=== PATIENT | female | born 1940 | race Caucasian/White ===

== ENCOUNTER 2017-09-09 14:36 | Inpatient (IN) | payer MEDICARE, OTHER ==
[2017-09-09 15:11] LABS: ADD MAN DIFF? NO
[2017-09-09 15:14] LABS: BASO # 0.1 x10^3/uL (0.0-0.2); BASO % 1 % (0-3); EOS % 0 % (0-3); HEMOGLOBIN 11.8 g/dL (12.0-15.5); LYMPH # 0.8 x10^3/uL (1.0-4.8); LYMPH % 8 % (24-48); MEAN CORPUSCULAR HEMOGLOBIN 19 pg (25-35); MEAN CORPUSCULAR HGB CONC 31 g/dL (31-37); MEAN CORPUSCULAR VOLUME 62 fL (79-100); MONO % 9 % (0-9); NEUT # 8.8 x10^3uL (1.8-7.7); NEUT % 83 % (31-73); PLATELET COUNT 215 x10^3/uL (140-400); RED BLOOD COUNT 6.14 x10^6/uL (3.50-5.40); RED CELL DISTRIBUTION WIDTH 15.6 % (11.5-14.5); WHITE BLOOD COUNT 10.6 x10^3/uL (4.0-11.0)
[2017-09-09 15:22] LABS: ANION GAP 4 (6-14); BLOOD UREA NITROGEN 14 mg/dL (7-20); CALCIUM 8.7 mg/dL (8.5-10.1); CARBON DIOXIDE 36 mmol/L (21-32); CHLORIDE 96 mmol/L (98-107); CREATININE 0.7 mg/dL (0.6-1.0); GFR 81.1; GLUCOSE 118 mg/dL (70-99); POTASSIUM 3.3 mmol/L (3.5-5.1); SODIUM 136 mmol/L (136-145)
[2017-09-09 15:28] LABS: ALBUMIN 3.2 g/dL (3.4-5.0); ALK PHOS 70 U/L (46-116); ALT (SGPT) 31 U/L (14-59); AST (SGOT) 26 U/L (15-37); DIRECT BILIRUBIN 0.1 mg/dL (0.0-0.2); LIPASE 78 U/L (73-393); TOTAL BILIRUBIN 0.6 mg/dL (0.2-1.0); TOTAL PROTEIN 7.3 g/dL (6.4-8.2)
[2017-09-09 15:31] LABS: TROPONINI < 0.017 ng/mL (0.000-0.055)
[2017-09-09 15:34] LABS: HYPOCHROMIA MARKED; MICROCYTOSIS MARKED; PLT ESTIMATE ADEQUATE (ADEQUATE); POLYCHROMASIA SLIGHT
[2017-09-09 15:36] LABS: NT-PRO BNP 1095 pg/mL (0-449)
[2017-09-09] MEDS: IPRATRPIUM/ALBUTEROL 0.5/2.5MG 3 ML NEBU. NEB ×2 (15:38→20:34)
[2017-09-09 16:06] LABS: LACTIC ACID 0.9 mmol/L (0.4-2.0)
[2017-09-09] MEDS: IV NORMAL SALINE 500ML BAG 500 ML IV (16:24)
[2017-09-09] MEDS: VANCOMYCIN 2 GM in IV DEXTROSE 5% 500 ML IV (16:29)
[2017-09-09] MEDS: methylPREDNISolone SOD SUCC PF 125 MG/2 ML VIAL. IV (16:29)
[2017-09-09] MEDS ORDERED: ONDANSETRON PF 4 MG/2 ML VIAL. IV (16:30)
[2017-09-09] MEDS ORDERED: ONDANSETRON ODT 4 MG TAB.RAPDIS. PO (16:30)
[2017-09-09] MEDS ORDERED: MORPHINE SULFATE 4 MG/ML DISP.SYRIN. IV (16:30)
[2017-09-09] MEDS ORDERED: HYDROcodone/APAP 5/325MG 1 TAB TABLET PO (16:30)
[2017-09-09] MEDS ORDERED: NICOTINE 21MG PATCH. TD (16:30)
[2017-09-09] MEDS ORDERED: ACETAMINOPHEN 500 MG TABLET PO (16:30)
[2017-09-09] MEDS ORDERED: IBUPROFEN 400 MG TABLET. PO (16:30)
[2017-09-09] MEDS ORDERED: guaiFENesin DM 200MG/20MG 10 ML SYRUP PO (16:30)
[2017-09-09] MEDS: VANCOMYCIN PER PHARMACY MC (17:14)
[2017-09-09 19:47] LABS: TROPONINI < 0.017 ng/mL (0.000-0.055)
[2017-09-09] MEDS: guaiFENesin DM 200MG/20MG 10 ML SYRUP PO ×2 (20:00→22:25)
[2017-09-09] MEDS: methylPREDNISolone SOD SUCC PF 40 MG/ML VIAL. IV ×2 (20:00→21:25)
[2017-09-09 22:52] LABS: TROPONINI < 0.017 ng/mL (0.000-0.055)
[2017-09-10] MEDS: IV NORMAL SALINE 1000ML BAG 1,000 ML IV ×3 (05:22→12:19)
[2017-09-10 05:39] LABS: BASO % 0 % (0-3); EOS % 0 % (0-3); HEMATOCRIT 32.6 % (36.0-47.0); HEMOGLOBIN 10.1 g/dL (12.0-15.5); LYMPH # 0.4 x10^3/uL (1.0-4.8); LYMPH % 6 % (24-48); MEAN CORPUSCULAR HEMOGLOBIN 19 pg (25-35); MEAN CORPUSCULAR HGB CONC 31 g/dL (31-37); MEAN CORPUSCULAR VOLUME 62 fL (79-100); MONO # 0.3 x10^3/uL (0.0-1.1); MONO % 4 % (0-9); NEUT # 6.3 x10^3uL (1.8-7.7); NEUT % 91 % (31-73); PLATELET COUNT 176 x10^3/uL (140-400); RED BLOOD COUNT 5.24 x10^6/uL (3.50-5.40); RED CELL DISTRIBUTION WIDTH 15.4 % (11.5-14.5); WHITE BLOOD COUNT 6.9 x10^3/uL (4.0-11.0)
[2017-09-10 05:50] LABS: ANION GAP 4 (6-14); BLOOD UREA NITROGEN 16 mg/dL (7-20); CALCIUM 7.6 mg/dL (8.5-10.1); CARBON DIOXIDE 34 mmol/L (21-32); CHLORIDE 102 mmol/L (98-107); CREATININE 0.7 mg/dL (0.6-1.0); GFR 81.1; GLUCOSE 146 mg/dL (70-99); POTASSIUM 3.7 mmol/L (3.5-5.1); SODIUM 140 mmol/L (136-145)
[2017-09-10 05:53] LABS: ADD MAN DIFF? YES
[2017-09-10] MEDS: methylPREDNISolone SOD SUCC PF 40 MG/ML VIAL. IV ×3 (06:19→22:44)
[2017-09-10] MEDS: IPRATRPIUM/ALBUTEROL 0.5/2.5MG 3 ML NEBU. NEB ×4 (07:31→19:30)
[2017-09-10] MEDS: guaiFENesin DM 200MG/20MG 10 ML SYRUP PO ×4 (08:15→22:44)
[2017-09-10 09:25] LABS: % BANDS 5 % (0-9); % BASOS 1 % (0-3); % LYMPHS 1 % (24-48); % MONOS 3 % (0-10); % SEGS 90 % (35-66); PLT ESTIMATE ADEQUATE (ADEQUATE)
[2017-09-10] MEDS: SODIUM CHLORIDE 0.65% NASAL SPRAY 45ML BOTTLE. NS (15:12)
[2017-09-10] MEDS: VANCOMYCIN 1.25 GM in IV DEXTROSE 5% 250 ML IV (16:40)
[2017-09-10] MEDS: VANCOMYCIN PER PHARMACY MC (18:27)
[2017-09-10] MEDS: LACTOBACILLUS RHAMNOSUS GG 1 CAPSULE. PO (22:44)
[2017-09-10] MEDS: TEMAZEPAM 7.5 MG CAPSULE PO (22:58)
[2017-09-11] MEDS: methylPREDNISolone SOD SUCC PF 40 MG/ML VIAL. IV ×3 (06:26→21:27)
[2017-09-11 06:34] LABS: ADD MAN DIFF? NO
[2017-09-11 06:41] LABS: BASO # 0.1 x10^3/uL (0.0-0.2); BASO % 1 % (0-3); EOS % 0 % (0-3); HEMATOCRIT 34.2 % (36.0-47.0); HEMOGLOBIN 10.5 g/dL (12.0-15.5); LYMPH # 0.5 x10^3/uL (1.0-4.8); LYMPH % 6 % (24-48); MEAN CORPUSCULAR HEMOGLOBIN 19 pg (25-35); MEAN CORPUSCULAR HGB CONC 31 g/dL (31-37); MEAN CORPUSCULAR VOLUME 62 fL (79-100); MONO # 0.5 x10^3/uL (0.0-1.1); MONO % 6 % (0-9); NEUT # 7.3 x10^3uL (1.8-7.7); NEUT % 87 % (31-73); PLATELET COUNT 188 x10^3/uL (140-400); RED CELL DISTRIBUTION WIDTH 15.7 % (11.5-14.5); WHITE BLOOD COUNT 8.5 x10^3/uL (4.0-11.0)
[2017-09-11 07:13] LABS: % SAT IRON 18 % (15-34); ALBUMIN 2.8 g/dL (3.4-5.0); ALBUMIN/GLOBULIN RATIO 0.8 (1.0-1.7); ALK PHOS 58 U/L (46-116); ALT (SGPT) 31 U/L (14-59); ANION GAP 4 (6-14); AST (SGOT) 18 U/L (15-37); BLOOD UREA NITROGEN 15 mg/dL (7-20); BUN/CREATININE RATIO 25 (6-20); CARBON DIOXIDE 36 mmol/L (21-32); CHLORIDE 101 mmol/L (98-107); CREATININE 0.6 mg/dL (0.6-1.0); GFR 96.9; GLUCOSE 128 mg/dL (70-99); IRON,SERUM 42 ug/dL (50-170); POTASSIUM 3.8 mmol/L (3.5-5.1); SODIUM 141 mmol/L (136-145); TOTAL BILIRUBIN 0.4 mg/dL (0.2-1.0); TOTAL PROTEIN 6.5 g/dL (6.4-8.2)
[2017-09-11] MEDS: IPRATRPIUM/ALBUTEROL 0.5/2.5MG 3 ML NEBU. NEB ×4 (07:31→19:51)
[2017-09-11 10:11] LABS: VITAMIN-B12 327 pg/mL (247-911)
[2017-09-11] MEDS: guaiFENesin DM 200MG/20MG 10 ML SYRUP PO ×4 (10:43→21:27)
[2017-09-11] MEDS: hydroCHLOROthiazide 25 MG TABLET PO (10:43)
[2017-09-11] MEDS: LACTOBACILLUS RHAMNOSUS GG 1 CAPSULE. PO ×2 (10:44→21:27)
[2017-09-11] MEDS: LOSARTAN POTASSIUM 50 MG TABLET. PO (10:44)
[2017-09-11] MEDS: LEVOTHYROXINE 88 MCG TABLET PO (10:44)
[2017-09-11] MEDS: METOPROLOL SUCC 24HR ER 100 MG TAB.ER.24H. PO (10:44)
[2017-09-11] MEDS: NYSTATIN TOPICAL POWDER 15GM BOTTLE. TP (21:00)
[2017-09-11] MEDS: SIMVASTATIN 20 MG TABLET PO (21:27)
[2017-09-11] MEDS: TEMAZEPAM 7.5 MG CAPSULE PO (23:19)
[2017-09-12] MEDS: methylPREDNISolone SOD SUCC PF 40 MG/ML VIAL. IV ×3 (06:03→22:31)
[2017-09-12] MEDS: IPRATRPIUM/ALBUTEROL 0.5/2.5MG 3 ML NEBU. NEB ×4 (07:19→20:22)
[2017-09-12] MEDS: hydroCHLOROthiazide 25 MG TABLET PO (08:32)
[2017-09-12] MEDS: METOPROLOL SUCC 24HR ER 100 MG TAB.ER.24H. PO (08:32)
[2017-09-12] MEDS: LACTOBACILLUS RHAMNOSUS GG 1 CAPSULE. PO ×2 (08:33→21:16)
[2017-09-12] MEDS: LOSARTAN POTASSIUM 50 MG TABLET. PO (08:33)
[2017-09-12] MEDS: guaiFENesin DM 200MG/20MG 10 ML SYRUP PO ×4 (08:33→21:16)
[2017-09-12] MEDS: LEVOTHYROXINE 88 MCG TABLET PO (08:33)
[2017-09-12] MEDS: NYSTATIN TOPICAL POWDER 15GM BOTTLE. TP ×2 (09:00→21:16)
[2017-09-12] MEDS: SIMVASTATIN 20 MG TABLET PO (21:16)
[2017-09-12] MEDS: SODIUM CHLORIDE 0.65% NASAL SPRAY 45ML BOTTLE. NS (22:32)
[2017-09-12] MEDS: TEMAZEPAM 7.5 MG CAPSULE PO (23:16)
[2017-09-13] MEDS: LEVOTHYROXINE 88 MCG TABLET PO (06:00)
[2017-09-13] MEDS: methylPREDNISolone SOD SUCC PF 40 MG/ML VIAL. IV ×3 (06:01→21:47)
[2017-09-13] MEDS: IPRATRPIUM/ALBUTEROL 0.5/2.5MG 3 ML NEBU. NEB ×5 (07:56→23:49)
[2017-09-13] MEDS: LACTOBACILLUS RHAMNOSUS GG 1 CAPSULE. PO ×2 (08:22→21:45)
[2017-09-13] MEDS: METOPROLOL SUCC 24HR ER 100 MG TAB.ER.24H. PO (08:22)
[2017-09-13] MEDS: hydroCHLOROthiazide 25 MG TABLET PO (08:22)
[2017-09-13] MEDS: LOSARTAN POTASSIUM 50 MG TABLET. PO (08:22)
[2017-09-13] MEDS: guaiFENesin DM 200MG/20MG 10 ML SYRUP PO ×4 (08:23→21:46)
[2017-09-13] MEDS: SODIUM CHLORIDE 0.65% NASAL SPRAY 45ML BOTTLE. NS (08:23)
[2017-09-13] MEDS ORDERED: IPRATRPIUM/ALBUTEROL 0.5/2.5MG 3 ML NEBU. NEB (10:00)
[2017-09-13] MEDS: NYSTATIN TOPICAL POWDER 15GM BOTTLE. TP ×2 (10:21→21:00)
[2017-09-13] MEDS: VITAMIN B12,B9,B6 COMPLEX 1 TABLET. PO (11:28)
[2017-09-13] MEDS: CYANOCOBALAMIN (VITAMIN B-12) 1,000 MCG/ML VIAL IM (11:28)
[2017-09-13] MEDS: ENOXAPARIN 40 MG/0.4 ML SYRINGE. SQ (11:29)
[2017-09-13] MEDS: BUDESONIDE 0.5 MG/2 ML NEBU. NEB ×2 (13:10→20:05)
[2017-09-13] MEDS: SIMVASTATIN 20 MG TABLET PO (21:45)
[2017-09-13] MEDS: TEMAZEPAM 7.5 MG CAPSULE PO (23:10)
[2017-09-14] MEDS: IPRATRPIUM/ALBUTEROL 0.5/2.5MG 3 ML NEBU. NEB ×3 (03:49→10:48)
[2017-09-14] MEDS: methylPREDNISolone SOD SUCC PF 40 MG/ML VIAL. IV (06:22)
[2017-09-14] MEDS: BUDESONIDE 0.5 MG/2 ML NEBU. NEB (07:19)
[2017-09-14] MEDS: LEVOTHYROXINE 88 MCG TABLET PO (07:44)
[2017-09-14] MEDS: hydroCHLOROthiazide 25 MG TABLET PO (08:39)
[2017-09-14] MEDS: guaiFENesin DM 200MG/20MG 10 ML SYRUP PO ×2 (08:39→12:57)
[2017-09-14] MEDS: LACTOBACILLUS RHAMNOSUS GG 1 CAPSULE. PO (08:39)
[2017-09-14] MEDS: VITAMIN B12,B9,B6 COMPLEX 1 TABLET. PO (08:39)
[2017-09-14] MEDS: LOSARTAN POTASSIUM 50 MG TABLET. PO (08:40)
[2017-09-14] MEDS: NYSTATIN TOPICAL POWDER 15GM BOTTLE. TP (08:42)
[2017-09-14] MEDS: ENOXAPARIN 40 MG/0.4 ML SYRINGE. SQ (11:00)
== END 2017-09-14 13:30 | disposition home health service (06) | DRG 189 ==
LOC: ER 14:36 → 5 SOUTH 16:00
DX: J96.01 Acute respiratory failure with hypoxia (principal); J44.0 Chronic obstructive pulmonary disease with (acute) lower respiratory infection; J44.1 Chronic obstructive pulmonary disease with (acute) exacerbation; M48.50XA Collapsed vertebra, not elsewhere classified, site unspecified, initial encounter for fracture; J20.9 Acute bronchitis, unspecified; E78.5 Hyperlipidemia, unspecified; D50.9 Iron deficiency anemia, unspecified; D56.9 Thalassemia, unspecified; E66.9 Obesity, unspecified; N28.89 Other specified disorders of kidney and ureter; I10 Essential (primary) hypertension; E03.9 Hypothyroidism, unspecified; Z86.73 Personal history of transient ischemic attack (TIA), and cerebral infarction without residual deficits; Z90.710 Acquired absence of both cervix and uterus; Z90.49 Acquired absence of other specified parts of digestive tract; Z88.0 Allergy status to penicillin; Z87.891 Personal history of nicotine dependence; Z82.49 Family history of ischemic heart disease and other diseases of the circulatory system; Z68.32 Body mass index [BMI] 32.0-32.9, adult
CPT/HCPCS: 36415; 71045; 71046; 71250; 76770; 78582; 80048; 80053; 80076; 82607; 83540; 83550; 83605; 83690; 83880; 84484; 85007; 85025; 87040; 93005; 94618; 94640; 94760; 96365; 96374; 96375; 97116-GP; 97161-GP; 97165-GO; 97530-GO; 97535-GO; 99285; 99285-25; A9540; A9558; J1650; J1956; J2920; J2930; J3370; J3420; J7030; J7040; J7620; J7626

== ENCOUNTER → 2017-12-19 | Outpatient (CLI) | payer MEDICARE, OTHER | END | disposition home or self-care (01) | LOC: KCIC US 12:04 | DX: M79.605 Pain in left leg (principal); M79.604 Pain in right leg; I70.8 Atherosclerosis of other arteries | CPT/HCPCS: 93922; 93925 ==

== ENCOUNTER → 2018-01-27 | Outpatient (CLI) | payer MEDICARE, OTHER ==
[2017-09-14 11:00] VITALS: BP 165/78
[~2018-01-27] MED LIST: IPRA4AER IH; LEVO500T59 PO; LEVO88TA4 PO; METO-247 PO; PRED-220 PO; SIMV20TA3 PO; VALS1TAB22 PO
--- NOTE | 2018-01-27 11:58 | RAD ---
MR#: [id number] Date of Study: 01/27/2018 Ordering Physician: SRUTHI WHITTINGTON, Referring Physician: SRUTHI WHITTINGTON, Tech: DANIEL Melton, RDFL, RTR APPROVED REPORT Patient Location : OUT-PATIENT Indications ARTERIAL DISEASE PER ORDER Findings grayscale images of the bilateral saphenofemoral junctions do not reveal any obvious evidence of thro mbus. Spectral waveforms and Doppler imaging of the greater and lesser saphenous veins do not show any obvi ous evidence of reflux. The bilateral lesser saphenous veins also did not show any evidence of reflux. Critical Notification Critical Value: No <Conclusion> Negative for reflux in the bilateral greater and lesser saphenous veins. Signed by : Enoch Richard, Electronically Approved : 01/27/2018 11:57:45
--- NOTE | 2018-01-27 14:37 | CARD ---
MR#: [id number] Date of Study: 01/27/2018 Ordering Physician: SRUTHI WHITTINGTON, Referring Physician: SRUTHI WHITTINGTON, Tech: Mirtha Herr APPROVED REPORT EXAM: Two-dimensional and M-mode echocardiogram with Doppler and color Doppler. Other Information Quality : GoodHR: 92bpm INDICATION Arterial Disease 2D DIMENSIONS RVDd2.5 (2.9-3.5cm)Left Atrium(2D)3.4 (1.6-4.0cm) IVSd1.3 (0.7-1.1cm)Aortic Root(2D)2.9 (2.0-3.7cm) LVDd4.0 (3.9-5.9cm)LVOT Diameter2.0 (1.8-2.4cm) PWd1.0 (0.7-1.1cm)LVDs2.8 (2.5-4.0cm) FS (%) 29.5 %SV39.5 ml LVEF(%)57.0 (>50%) Aortic Valve AoV Peak Chris.133.0cm/sAoV VTI27.0cm AO Peak GR.7.1mmHgLVOT VTI 21.67cm AO Mean GR.4mmHg Mitral Valve MV E Ixsaxxpe85.4cm/sMV DECEL GVCY327fm MV A Rgaeqtwn784.0cm/sE/A Ratio0.7 TDI Lateral E' P. V11.65cm/sMedial E' P. V9.78cm/s E/Lateral E'7.4E/Medial E'8.8 Tricuspid Valve TR P. Qdeappcw985dr/sRAP IHWSQTRZ7zlSo TR Peak Gr.75ugWjOYMF88ljEv Pulmonary Vein S1 Nbicxkhp34.6cm/sS2 Sxuwrkyd31.49cm/s D2 Zqfvgkmq05.5cm/s LEFT VENTRICLE The left ventricle is normal size. There is normal left ventricular wall thickness. The left ventricu lar systolic function is normal. The ejection fraction is estimated at 55-60%. There is normal LV seg mental wall motion. Transmitral Doppler flow pattern is Grade I-abnormal relaxation pattern. RIGHT VENTRICLE The right ventricle is normal size. There is normal right ventricular wall thickness. The right ventr icular systolic function is normal. ATRIA The left atrium size is normal. The right atrium size is normal. The interatrial septum is intact wit h no evidence for an atrial septal defect or patent foramen ovale as noted on 2-D or Doppler imaging. AORTIC VALVE The aortic valve is normal in structure and function. Doppler and Color Flow revealed no significant aortic regurgitation. There is no significant aortic valvular stenosis. MITRAL VALVE The mitral valve is normal in structure and function. There is no mitral valve stenosis. Doppler and Color-flow revealed trace mitral regurgitation. TRICUSPID VALVE The tricuspid valve is normal in structure and function. Trace tricuspid regurgitation. There is no t ricuspid valve stenosis. GREAT VESSELS The aortic root is normal in size. The IVC is normal in size and collapses >50% with inspiration. PERICARDIAL EFFUSION There is no evidence of significant pericardial effusion. Critical Notification Critical Value: No <Conclusion> The left ventricular systolic function is normal. The ejection fraction is estimated at 55-60%. There is normal LV segmental wall motion. Transmitral Doppler flow pattern is Grade I-abnormal relaxation pattern. Trace mitral regurgitation. Trace tricuspid regurgitation. There is no evidence of significant pericardial effusion. Signed by : Keith Richardson, Electronically Approved : 01/27/2018 14:37:08
== END | disposition home or self-care (01) ==
LOC: US 08:59
PROVIDERS: ATTEND Internal Medicine Cardiovascular Disease
DX: I77.9 Disorder of arteries and arterioles, unspecified (principal); I10 Essential (primary) hypertension; E78.5 Hyperlipidemia, unspecified; E03.9 Hypothyroidism, unspecified; E66.9 Obesity, unspecified; Z87.891 Personal history of nicotine dependence; Z82.49 Family history of ischemic heart disease and other diseases of the circulatory system; Z88.0 Allergy status to penicillin
CPT/HCPCS: 93306; 93970

== ENCOUNTER → 2018-06-04 | Day surgery (SDC) | payer MEDICARE, OTHER ==
[~2018-06-04] MED LIST changes: +HYDROmorphone 2 MG/ML VIAL IV PRN; +IV RINGERS,LACTATED 1000ML 1,000 ML IV SCH; +LIDOCAINE 1% PF 2 ML VIAL. ID PRN; +MORPHINE SULFATE 2 MG/ML VIAL. IV PRN; +ONDANSETRON PF 4 MG/2 ML VIAL. IV PRN; +PROCHLORPERAZINE 10 MG/2 ML VIAL. IV PRN; +PROPOFOL 40 ML IV ONE; +TIOT4MIS3 IH; +fentaNYL PF VIAL 100 MCG/2 ML VIAL IV PRN
[2018-06-04 11:15] VITALS: BP 141/76
--- NOTE | 2018-06-05 16:09 | PATHOLOGY ---
[facility] Accession Number: [id number] . 01 Material submitted: . PART A: SMALL BOWEL BIOPSY PART B: GASTRIC ANTRUM BIOPSY PART C: DISTAL ESOPHAGUS BIOPSY PART D: TERMINAL ILEUM BIOPSY PART E: RIGHT COLON BIOPSY PART F: LEFT COLON BIOPSY PART G: RECTAL POLYPS . 01 Clinical history: . Pre-OP DX: GERD, diarrhea Post-OP DX: See Dr. brooke, esophageal ulcer . 02 Diagnosis: A. Small bowel biopsy: - Focal mild acute inflammation. . B. Gastric biopsy, antrum: - Chronic gastritis, mild. . C. Esophageal biopsies, distal esophagus: - Segments of hyperplastic squamous esophageal mucosa, esophagogastric mucosa, and gastric mucosa showing chronic inflammation, consistent with reflux esophagitis. . D. Terminal ileum biopsies: - No significant pathologic abnormalities. . E. Colon biopsies, right colon: - No significant pathologic abnormalities. . F. Colon biopsies, left colon: - No significant pathologic abnormalities. . G. Colorectal biopsies, rectal polyps: - Hyperplastic polyps. (JPM:robert; 06/05/2018) QMS/06/05/2018 . 02 Comment: Sections of the small bowel biopsy reveal duodenal mucosa showing focal mild acute inflammation within a few mucosal villi. There are no sprue-like changes. . Sections of the gastric biopsy reveal gastric antral/body transition mucosa showing congestion and mild chronic inflammation. A properly controlled immunoperoxidase stain for Helicobacter is negative for Helicobacter organisms. . Sections of the distal esophageal biopsy reveal segments of hyperplastic squamous esophageal mucosa, esophagogastric mucosa, and gastric mucosa showing ldtp-rw-wcwhbvwl chronic inflammation, consistent with reflux esophagitis. There is no evidence of Maradiaga's change, dysplasia, or malignancy. . Sections of the terminal ileum biopsy reveal small intestine mucosa showing no sprue-like changes or significant inflammatory changes. . Sections of the right colon and left colon biopsies reveal multiple segments of colonic mucosa. There is no evidence of a chronic destructive colitis, lymphocytic colitis, or collagenous colitis. . Sections of the rectal biopsies reveal several hyperplastic polyps. There are no adenomatous changes or evidence of malignancy. (JPM:robert; 06/05/2018) . Special stain performed: Immunoperoxidase stain for Helicobacter on B1 . 02 Electronically signed: . Chato Whittington MD, Pathologist NPI- [id number] . 01 Gross description: . A. Received in formalin labeled "Ne Perdomo, small bowel BX," is a single segment of mcallister soft tissue measuring 0.4 cm in maximum dimension. The specimen is entirely submitted in cassette A1. . B. Received in formalin labeled "Ne Perdomo, gastric antrum BX," is a single segment of mcallister soft tissue measuring 0.3 cm in maximum dimension. The specimen is entirely submitted in cassette B1. . C. Received in formalin labeled "Ne Perdomo, distal esophagus BX," are 3 segments of mcallister soft tissue measuring 0.7 x 0.4 x 0.2 cm in aggregate dimensions and ranging from 0.3 to 0.4 cm in maximum dimension. The specimen is submitted entirely in cassette C1. . D. Received in formalin labeled "Ne Perdomo, terminal ileum BX," are 2 segments of mcallister soft tissue measuring 0.7 x 0.3 x 0.2 cm in aggregate dimensions and ranging from 0.3 to 0.4 cm in maximum dimension. The specimen is submitted entirely in cassette D1. . E. Received in formalin labeled "Ne Perdomo, right colon BX," are 4 segments of mcallister soft tissue measuring 1.3 x 0.9 x 0.2 cm in aggregate dimensions and ranging from 0.3 to 0.6 cm in maximum dimension. The specimen is submitted entirely in cassette E1. . F. Received in formalin labeled "[place], left colon BX," are 5 segments of mcallister soft tissue measuring 1.1 x 0.8 x 0.2 cm in aggregate dimensions and ranging from 0.2 to 0.4 cm in maximum dimension. The specimen is submitted entirely in cassette F1. . G. Received in formalin labeled "Ne Perdomo, rectal polyps," are 3 segments of mcallister soft tissue measuring 0.7 x 0.5 x 0.2 cm in aggregate dimensions and ranging from 0.3 to 0.5 cm in maximum dimension. The specimen is submitted entirely in cassette G1. (TSD; 06/04/2018) TOB/TOB . 02 Pathologist provided ICD-10: K52.9, K29.50, K21.0, K62.1 . 02 CPT . 020683, 132042, 220446, 934994, 617720, 119967, 300006, K29367 Specimen Comment: A courtesy copy of this report has been sent to Specimen Comment: [phone], . Specimen Comment: Report sent to and Specimen Comment: A duplicate report has been generated due to demographic updates. Performed at: 01 [facility] [address] [id number] MD Ilia Pavon MD Phone: [phone] Performed at: 02 [facility] [address] [place], [place] [id number] MD Chato Whittington MD Phone: [phone]
== END | disposition home or self-care (01) ==
LOC: ENDOS 08:39
PROVIDERS: ATTEND Internal Medicine Gastroenterology
DX: K62.1 Rectal polyp (principal); K63.89 Other specified diseases of intestine; K29.50 Unspecified chronic gastritis without bleeding; K64.0 First degree hemorrhoids; K21.0 Gastro-esophageal reflux disease with esophagitis; K31.89 Other diseases of stomach and duodenum; K52.89 Other specified noninfective gastroenteritis and colitis; Z88.0 Allergy status to penicillin; Z88.5 Allergy status to narcotic agent; D64.9 Anemia, unspecified; M19.90 Unspecified osteoarthritis, unspecified site; Z86.010 Personal history of colon polyps; I10 Essential (primary) hypertension; E78.00 Pure hypercholesterolemia, unspecified; Z90.49 Acquired absence of other specified parts of digestive tract; Z90.710 Acquired absence of both cervix and uterus; Z72.89 Other problems related to lifestyle; Z79.899 Other long term (current) drug therapy; Z98.890 Other specified postprocedural states; Z86.73 Personal history of transient ischemic attack (TIA), and cerebral infarction without residual deficits; Z82.49 Family history of ischemic heart disease and other diseases of the circulatory system
CPT/HCPCS: 43239; 45380; 88305; 88342; J2704; 45385

== ENCOUNTER → 2018-08-27 | Outpatient (CLI) | payer MEDICARE, OTHER ==
[2018-06-04 11:15] VITALS: BP 141/76
[~2018-08-27] MED LIST changes: -HYDROmorphone 2 MG/ML VIAL IV PRN; -IV RINGERS,LACTATED 1000ML 1,000 ML IV SCH; -LIDOCAINE 1% PF 2 ML VIAL. ID PRN; -MORPHINE SULFATE 2 MG/ML VIAL. IV PRN; -ONDANSETRON PF 4 MG/2 ML VIAL. IV PRN; -PROCHLORPERAZINE 10 MG/2 ML VIAL. IV PRN; -PROPOFOL 40 ML IV ONE; -fentaNYL PF VIAL 100 MCG/2 ML VIAL IV PRN
--- NOTE | 2018-08-27 14:33 | RAD ---
EXAM: PA and Lateral Views of the Chest DATE: 08/27/2018 1:27 PM INDICATION: COPD dyspnea COMPARISON: 09/13/2017, 09/09/2017 FINDINGS: The cardiomediastinal silhouette is stable. Atherosclerotic calcifications of the tortuous aorta are seen. Linear opacities bilateral lung bases likely scarring/subsegmental atelectasis. No lobar consolidation. Blunting of the posterior costophrenic angle bilaterally, small effusions or pleural thickening. No pneumothorax. There is wedging deformity of multiple midlower thoracic vertebral bodies, some of which were seen on prior and these likely represent age-indeterminate compression fractures. IMPRESSION: 1. Bibasilar linear opacities likely subsegmental atelectasis. No lobar consolidation. 2. Bilateral pleural thickening versus small pleural effusions. 3. Age-indeterminate is compression fractures of the midlower thoracic spine, some of which are chronic/stable to prior radiograph 09/13/2017. Electronically signed by: Brian Jefferson MD (08/27/2018 2:30 PM) [facility]
== END | disposition home or self-care (01) ==
LOC: RAD 13:12
PROVIDERS: ATTEND Internal Medicine Critical Care Medicine
DX: J44.9 Chronic obstructive pulmonary disease, unspecified (principal); I70.0 Atherosclerosis of aorta; M43.8X4 Other specified deforming dorsopathies, thoracic region
CPT/HCPCS: 71046

== ENCOUNTER → 2018-10-20 | Outpatient (CLI) | payer MEDICARE, OTHER ==
[2018-06-04 11:15] VITALS: BP 141/76
--- NOTE | 2018-10-22 08:39 | KCIC ---
EXAM: Bilateral digital screening mammogram with tomosynthesis. HISTORY: 78-year-old female presents for screening mammography. TECHNIQUE: Full-field digital craniocaudal and mediolateral oblique 2D and 3D tomosynthesis images of both breasts are obtained for evaluation. Computer aided detection with [employer] software version 9.3 was applied. COMPARISON: 04/09/2016 BREAST PARENCHYMAL DENSITY: Level B - Scattered fibroglandular densities. FINDINGS: There is no new suspicious mass, microcalcification or region of architectural distortion. There are stable areas of asymmetry and nodularity within both breasts. There are multiple benign calcifications. IMPRESSION: BI-RADS Category 2: Benign finding(s). RECOMMENDATION: Annual mammography is recommended. If your mammogram demonstrates that you have dense breast tissue, which could hide abnormalities, and if you have other risk factors for breast cancer that have been identified, you might benefit from supplemental screening tests that may be suggested by your ordering physician. Dense breast tissue, in and of itself, is a relatively common condition. This information is not provided to cause undue concern, but rather to raise your awareness and to promote discussion with your physician regarding the presence of other risk factors, in addition to dense breast tissue. A report of your mammography results will be sent to you and your physician. You should contact your physician if you have any questions or concerns regarding this report. Mammography is a sensitive method for finding small breast cancers, but it does not detect them all and is not a substitute for careful clinical examination. A negative mammogram does not negate a clinically suspicious finding and should not result in delay in biopsying a clinically suspicious abnormality. PQRS compliance statement - Patient information was entered into a reminder system with a target due date for the next mammogram. "Our facility is accredited by the [employer] Mammography Program." Electronically signed by: Noris Zambrano MD (10/22/2018 8:36 AM) [facility]
== END | disposition home or self-care (01) ==
LOC: KCIC MAMMO 15:16
PROVIDERS: ATTEND Family Medicine
DX: Z12.31 Encounter for screening mammogram for malignant neoplasm of breast (principal); N64.89 Other specified disorders of breast
CPT/HCPCS: 77063; 77067

== ENCOUNTER 2019-02-19 13:56 | Emergency (ER) | payer MEDICARE, OTHER ==
[2018-06-04 11:15] VITALS: BP 141/76
[~2019-02-19] VITALS: Ht 157.5 cm; Wt 95.3 kg
[2019-02-19] MEDS ORDERED: fentaNYL PF VIAL 100 MCG/2 ML VIAL IM ONE (14:45)
--- NOTE | 2019-02-19 14:49 | PHYS DOC ---
Past Medical History Past Medical History: Bronchitis, Other Additional Past Medical Histor: COLITIS, ra. "STROKES IN EYES" Past Surgical History: Cholecystectomy, Hysterectomy Alcohol Use: Occasionally Drug Use: None Adult General Chief Complaint Chief Complaint: BACK PAIN OR INJURY [facility] HPI Patient is a 78 year old female who presents with complaining of low back pain. Patient complaining of right lower back pain since yesterday morning as a constant pain that getting worse with supine position addition to her neck. Patient states the pain is 10 over 10 with supine position and denies focal neuro deficit, injury, fever and chills, abdominal pain, nausea and vomiting. Patient states she had the same pain about 10 years ago with diagnosis of compression fracture without known injury. Review of Systems Review of Systems Constitutional: Denies fever or chills [] Eyes: Denies change in visual acuity, redness, or eye pain [] HENT: Denies nasal congestion or sore throat [] Respiratory: Denies cough or shortness of breath [] Cardiovascular: No additional information not addressed in HPI [] GI: Denies abdominal pain, nausea, vomiting, bloody stools or diarrhea [] : Denies dysuria or hematuria [] Musculoskeletal: Reports back pain Integument: Denies rash or skin lesions [] Neurologic: Denies headache, focal weakness or sensory changes [] Endocrine: Denies polyuria or polydipsia [] All other systems were reviewed and found to be within normal limits, except as documented in this note. Current Medications Current Medications Current Medications Medications (Trade) Dose Ordered Sig/Mariya Start Time Stop Time Status Last Admin Dose Admin Fentanyl Citrate (Fentanyl 2ml Vial) 50 mcg 1X ONCE 02/19/19 14:45 02/19/19 14:46 DC 02/19/19 14:52 50 MCG Allergies Allergies Allergies Coded Allergies Type Severity Reaction Last Updated Verified Penicillins Allergy Intermediate 06/04/18 Yes Physical Exam Physical Exam Constitutional: Well developed, well nourished, mild distress, non-toxic appearance. [] HENT: Normocephalic, atraumatic. Eyes: PERRLA, EOMI, conjunctiva normal, no discharge. [] Neck: Normal range of motion, no tenderness, supple, no stridor. [] Cardiovascular:Heart rate regular rhythm, no murmur [] Lungs & Thorax: Bilateral breath sounds clear to auscultation [] Abdomen: Bowel sounds normal, soft, no tenderness, no masses, no pulsatile masses. [] Skin: Warm, dry, no erythema, no rash. [] Back: No midline tenderness, right lower back muscle spasm and tenderness, no CVA tenderness. [] Extremities: No tenderness, no cyanosis, no clubbing, ROM intact, no edema. [] Neurologic: Alert and oriented X 3, no focal deficits noted. [] Psychologic: Affect normal, judgement normal, mood normal. [] Current Patient Data Vital Signs Vital Signs Date Time Temp Pulse Resp B/P (MAP) Pulse Ox O2 Delivery O2 Flow Rate FiO2 02/19/19 14:52 16 99 Room Air 02/19/19 14:19 97.6 112 164/81 (108) 97.6 Lab Values Laboratory Tests Test 02/19/19 14:48 Urine Collection Type Unknown Urine Color Yellow Urine Clarity Clear Urine pH 5.0 Urine Specific [place] 1.015 Urine Protein Negative mg/dL (NEG-TRACE) Urine Glucose (UA) Negative mg/dL (NEG) Urine Ketones (Stick) Negative mg/dL (NEG) Urine Blood Negative (NEG) Urine Nitrite Negative (NEG) Urine Bilirubin Negative (NEG) Urine Urobilinogen Dipstick 0.2 mg/dL (0.2 mg/dL) Urine Leukocyte Esterase Large (NEG) Urine RBC 3-5 /HPF (0-2) Urine WBC >40 /HPF (0-4) Urine Squamous Epithelial Cells Many /LPF Urine Transitional Epithelial Cells Few /LPF Urine Bacteria Few /HPF (0-FEW) Urine Hyaline Casts Moderate /HPF Urine Mucus Mod /LPF EKG EKG [] Radiology/Procedures Radiology/Procedures [][facility] [address] [place] [address] IMAGING REPORT Signed PATIENT: REYMUNDO GARCIA ACCOUNT: [id number] : 1940 LOCATION: ER AGE: 78 SEX: F EXAM STATUS: REG ER ORD. PHYSICIAN: SIXTO ORTIZ MD REASON: low back pain, history of compression fracture PROCEDURE: CT LUMBAR SPINE WO CONTRAST Study: CT lumbar spine without contrast INDICATION: Low back pain. History of compression fracture. COMPARISON: No prior dedicated cross-sectional imaging of the lumbar spine is available for review. TECHNIQUE: Axial CT imaging of the lumbar spine performed without the use of intravenous contrast. FINDINGS: Mild posterior wedging of the L5 vertebral body. Concavity of the L1 superior endplate potentially a combination of prior compression fracture and a Schmorl's node with approximately 30 percent central height loss. Minimal dorsal cortical buckling without bony encroachment on the central canal at this level. Superior endplate compression deformity at L3 with buckling of the dorsal cortex extending posteriorly by approximately 6 mm resulting in mild effacement of the thecal sac with the central canal measuring 9.5 mm in mid sagittal dimension. Height loss centrally of approximately 30 percent. No large prevertebral/paraspinous hematoma associated with these findings to definitively suggest these deformities to be acute/subacute in age. Diffuse osteopenia. Lumbar lordosis is maintained. No severe disc space height loss. Facet degeneration at scattered levels which is relatively mild and there is no severe bony encroachment on the neural foramina. 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 Scattered disc bulges which only partially characterized and no severe central canal stenosis is readily apparent. Partially visualized radiodensity within the gastric fundus which could be radiodense ingested material. Extensive aortobiiliac atherosclerotic calcifications without aneurysmal dilatation. Atherosclerotic calcifications at the major aortic branch origins as well as more distally along the course of these vessels such as the bilateral renal arteries and SMA. Mild sigmoid diverticulosis. Exophytic, simple appearing cyst off the upper pole the right kidney, image 26 series 2, measuring 2.3 cm in transverse dimension with a measured internal density of 12 Hounsfield units. IMPRESSION: 1. Superior endplate compression deformity at L3 without definite findings by CT to suggest acuity. Dorsal cortical buckling at this level measuring approximately 6 mm in AP dimension with effacement of the ventral thecal sac. The canal measures 9.5 mm in mid sagittal dimension at this level which is compatible with mild stenosis. 2. Superior endplate can cavity at L1 which could represent a combination of a compression fracture and a prominent Schmorl's node. No significant dorsal cortical buckling. There are no findings at this level as well to definitively suggest acuity. Mild posterior wedging at L5 without findings to suggest an acute etiology. Any outside imaging studies would be beneficial to determine chronicity. If there is ongoing concern, MRI could better age the deformities and also fully characterize the degree of associated stenosis. 3. Remote nondisplaced pars defect on the right at L5. 4. No advanced disc space height loss. Scattered levels with relatively mild facet degeneration and no severe bony encroachment on the neural foramina. Chronic findings seen throughout the partially visualized abdomen/pelvis as detailed above. This includes extensive aortic and branch vessel atherosclerotic calcifications without aneurysmal dilatation. Assessment for any associated luminal stenosis is limited without the use of intravenous contrast. Electronically signed by: DIMITRY SPIVEY MD (02/19/2019 3:24 PM) [facility] DICTATED and SIGNED BY: DIMITRY SPIVEY MD DATE: 02/19/19 1524 Course & Med Decision Making Course & Med Decision Making Pertinent Labs and Imaging studies reviewed. (See chart for details) Evaluation of patient in ER showed 78-year-old female patient with complaining of low back Pain the same as her pain during previous compression fraction 10 years ago. Patient had no new compression fracture and CT of lumbar spine and UA showed more than 40 WBC. Patient treated with fentanyl in ER and felt better. I've spoken with the patient and/or caregivers. I've explained the patient's condition, diagnosis and treatment plan based on information available to me at this time. I've answered the patient's and/or caregivers questions and addressed any concerns. The patient and/or caregivers have a good understanding the patient's diagnosis, condition and treatment plan as can be expected at this point. Vital signs have been stabilized. The patient's condition is stable for discharge from the emergency department. The patient will pursue further outpatient evaluation with her primary care provider or other designated consulting physician as outlined in the discharge instructions. Patient and/or caregivers are agreeable to this plan of care and follow-up instructions have been explained in detail. The patient and/or caregivers have received these instructions in written format and expressed understanding of these discharge instructions. The patient and her caregivers are aware that if any significant change in condition or worsening of symptoms should prompt him to immediately return to this of the closest emergency department. If an emergent department is not readily available I would encourage him to call 911. [place] Disclaimer Dragon Disclaimer This electronic medical record was generated, in whole or in part, using a voice recognition dictation system. Departure Departure Impression: Primary Impression: Acute lumbosacral myofascial strain Additional Impressions: Urinary tract infection History of compression fracture of spine Disposition: 01 HOME, SELF-CARE (at 1559) Condition: IMPROVED Referrals: BRENDA BANUELOS MD (PCP) Patient Instructions: Back, Compression Fracture, Lumbosacral Strain, Urinary Tract Infection Additional Instructions: Apply ice on your back Follow-up with your primary care physician in 3-5 days Return to ER if not getting better Scripts Hydrocodone/Apap 5-325 (NORCO 5-325 TABLET) 1 Each Tablet 1 TAB PO PRN Q6HRS PRN for PAIN, #14 TAB 0 Refills Prov: SIXTO ORTIZ MD 02/19/19 Cyclobenzaprine Hcl (CYCLOBENZAPRINE HCL) 10 Mg Tablet 1 TAB PO TID, #21 TAB Prov: SIXTO ORTIZ MD 02/19/19 Sulfamethoxazole/Trimethoprim (BACTRIM DS TABLET) 1 Each Tablet 1 TAB PO BID for infection, #14 TAB Prov: SIXTO ORTIZ MD 02/19/19 Problem Qualifiers Primary Impression: Acute lumbosacral myofascial strain Encounter type: initial encounter Qualified Codes: S39.012A - Strain of muscle, fascia and tendon of lower back, initial encounter Additional Impressions: Urinary tract infection Urinary tract infection type: site unspecified Hematuria presence: without hematuria Qualified Codes: N39.0 - Urinary tract infection, site not specified SIXTO ORTIZ MD Feb 19, 2019 14:49
[2019-02-19 14:56] LABS: BILIRUBIN,URINE NEGATIVE (NEG); CLARITY,URINE CLEAR; COLOR,URINE YELLOW; NITRITE,URINE NEGATIVE (NEG); PROTEIN,URINE NEGATIVE (NEG-TRACE); UROBILINOGEN,URINE 0.2 mg/dL (0.2 mg/dL)
[2019-02-19 15:08] LABS: HYALINE CASTS, URINE MODERATE /HPF; SQUAMOUS EPITHELIAL CELL,UR MANY /LPF
[2019-02-19 15:09] LABS: BACTERIA,URINE FEW /HPF (0-FEW); WBC,URINE >40 /HPF (0-4)
--- NOTE | 2019-02-19 15:26 | RAD ---
Study: CT lumbar spine without contrast INDICATION: Low back pain. History of compression fracture. COMPARISON: No prior dedicated cross-sectional imaging of the lumbar spine is available for review. TECHNIQUE: Axial CT imaging of the lumbar spine performed without the use of intravenous contrast. FINDINGS: Mild posterior wedging of the L5 vertebral body. Concavity of the L1 superior endplate potentially a combination of prior compression fracture and a Schmorl's node with approximately 30 percent central height loss. Minimal dorsal cortical buckling without bony encroachment on the central canal at this level. Superior endplate compression deformity at L3 with buckling of the dorsal cortex extending posteriorly by approximately 6 mm resulting in mild effacement of the thecal sac with the central canal measuring 9.5 mm in mid sagittal dimension. Height loss centrally of approximately 30 percent. No large prevertebral/paraspinous hematoma associated with these findings to definitively suggest these deformities to be acute/subacute in age. Diffuse osteopenia. Lumbar lordosis is maintained. No severe disc space height loss. Facet degeneration at scattered levels which is relatively mild and there is no severe bony encroachment on the neural foramina. 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 Scattered disc bulges which only partially characterized and no severe central canal stenosis is readily apparent. Partially visualized radiodensity within the gastric fundus which could be radiodense ingested material. Extensive aortobiiliac atherosclerotic calcifications without aneurysmal dilatation. Atherosclerotic calcifications at the major aortic branch origins as well as more distally along the course of these vessels such as the bilateral renal arteries and SMA. Mild sigmoid diverticulosis. Exophytic, simple appearing cyst off the upper pole the right kidney, image 26 series 2, measuring 2.3 cm in transverse dimension with a measured internal density of 12 Hounsfield units. IMPRESSION: 1. Superior endplate compression deformity at L3 without definite findings by CT to suggest acuity. Dorsal cortical buckling at this level measuring approximately 6 mm in AP dimension with effacement of the ventral thecal sac. The canal measures 9.5 mm in mid sagittal dimension at this level which is compatible with mild stenosis. 2. Superior endplate can cavity at L1 which could represent a combination of a compression fracture and a prominent Schmorl's node. No significant dorsal cortical buckling. There are no findings at this level as well to definitively suggest acuity. Mild posterior wedging at L5 without findings to suggest an acute etiology. Any outside imaging studies would be beneficial to determine chronicity. If there is ongoing concern, MRI could better age the deformities and also fully characterize the degree of associated stenosis. 3. Remote nondisplaced pars defect on the right at L5. 4. No advanced disc space height loss. Scattered levels with relatively mild facet degeneration and no severe bony encroachment on the neural foramina. Chronic findings seen throughout the partially visualized abdomen/pelvis as detailed above. This includes extensive aortic and branch vessel atherosclerotic calcifications without aneurysmal dilatation. Assessment for any associated luminal stenosis is limited without the use of intravenous contrast. Electronically signed by: DIMITRY SPIVEY MD (02/19/2019 3:24 PM) [facility]
[2019-02-19] MEDS ORDERED: HYDR-3164 PO (16:03)
[2019-02-19] MEDS ORDERED: CYCL10TA2 PO (16:03)
[2019-02-19] MEDS ORDERED: SULF1TAB24 PO (16:03)
== END 2019-02-19 16:24 | disposition home or self-care (01) ==
LOC: ER 13:56
DX: S39.012A Strain of muscle, fascia and tendon of lower back, initial encounter (principal); N39.0 Urinary tract infection, site not specified; Z90.49 Acquired absence of other specified parts of digestive tract; Z90.710 Acquired absence of both cervix and uterus; Z88.0 Allergy status to penicillin; X58.XXXA Exposure to other specified factors, initial encounter; Y93.89 Activity, other specified; Y92.89 Other specified places as the place of occurrence of the external cause; Y99.8 Other external cause status
CPT/HCPCS: 72131; 81001; 87086; 96372; 99285; J3010; 96374; 96375

== ENCOUNTER → 2019-03-08 | Outpatient (CLI) | payer MEDICARE, OTHER ==
[2019-02-19 14:19] VITALS: BP 164/81
[~2019-03-08] MED LIST changes: +CYCL10TA2 PO; +HYDR-3164 PO; +SULF1TAB24 PO
--- NOTE | 2019-03-09 10:09 | KCIC ---
MRI of the lumbar spine without contrast 03/08/2019 CLINICAL HISTORY: Low back pain with difficulty walking. TECHNIQUE: Low back pain with difficulty walking. History of previous lumbar compression fracture. TECHNIQUE: Unenhanced T1-weighted and T2-weighted sagittal and axial and inversion recovery sagittal images of the lumbar spine were obtained. FINDINGS: Comparison is made to patient's CT scan lumbar spine dated 02/19/2019. Very mild S-shaped curvature of the thoracolumbar spine is seen. Degenerative signal changes are seen involving all of the disks of the lumbar spine. Degenerative signal changes are seen within the marrow surrounding these discs. The conus medullaris is normal morphology, position, and signal characteristics. Parapelvic cysts are seen involving both kidneys. These measure 5 mm to 2.4 cm in size. Old compression fractures are seen involving the superior endplate of the L1 vertebral body and the superior endplate of the L3 vertebral body. An acute compression fracture is seen involving the superior endplate of the L2 vertebral body. This vertebral body has lost approximately 15 percent of its normal height. No retropulsion of bone fragments into the central spinal canal is seen. No additional acute compression fracture of the lumbar vertebrae is noted. At the T12-L1 disc space there is mild generalized disc bulge. This is eccentric to the right. Degenerative changes are seen involving the facet joints bilaterally. These findings do not result in significant central spinal canal or neural foraminal stenosis. At the L1-2 disc space there is a mild to moderate generalized disc bulge. This is eccentric to the right. Degenerative changes are seen involving the facet joints bilaterally. There is moderate ligamentum flavum hypertrophy bilaterally. These findings when combined do not result in significant central spinal canal or neural foraminal stenosis. At the L2-3 disc space there is a mild to moderate generalized disc bulge. Opposing on this disc bulge is a focal central disc osteophyte complex. As measures 5 mm in AP diameter degenerative changes are seen involving the facet joints bilaterally. There is moderate ligamentum flavum hypertrophy bilaterally. There is prominence of posterior epidural fat. These findings when combined result in mild central spinal canal stenosis. No neural foraminal stenosis is seen. At the L3-4 disc space there is a mild generalized disc bulge. Superimposed on this disc bulge is a central/right paracentral focal disc protrusion. This measures 3 mm in AP diameter. Degenerative changes are seen involving the facet joints bilaterally. There is mild ligament flavum hypertrophy bilaterally. These findings when combined do not result in significant central spinal canal or neural foraminal stenosis. At the L4-5 disc space there is a mild generalized disc bulge. Degenerative changes are seen involving the facet joints bilaterally. There is mild ligamentum flavum hypertrophy bilaterally. These findings when combined do not result in significant central spinal canal or neural foraminal stenosis. At the L5-S1 disc space there is a minimal generalized disc bulge. Degenerative changes are seen involving the facet joints bilaterally. There is mild ligamentum flavum hypertrophy bilaterally. These findings when combined do not result in significant central spinal canal or neural foraminal stenosis. IMPRESSION: 1. An acute compression fracture is seen involving the L2 vertebral body. No retropulsion of bone fragments into the central spinal canal is seen. 2. The changes of degenerative disc disease are seen throughout the lumbar spine. These findings result in mild central spinal canal stenosis at L2-3. No neural foraminal stenosis is seen. Electronically signed by: Spencer Auguste MD (03/09/2019 10:06 AM) [facility]
== END | disposition home or self-care (01) ==
LOC: KCIC MRI 14:54
PROVIDERS: ATTEND Family Medicine
DX: S32.000A Wedge compression fracture of unspecified lumbar vertebra, initial encounter for closed fracture (principal); R26.2 Difficulty in walking, not elsewhere classified; M51.36 Other intervertebral disc degeneration, lumbar region; M54.5 Low back pain; X58.XXXA Exposure to other specified factors, initial encounter; Y93.89 Activity, other specified; Y92.89 Other specified places as the place of occurrence of the external cause; Y99.8 Other external cause status
CPT/HCPCS: 72148

== ENCOUNTER → 2019-03-22 | Outpatient (CLI) | payer MEDICARE, OTHER ==
[2019-03-22] VITALS (7 sets, daily range): BP systolic 114–170; BP diastolic 64–103
[~2019-03-22] VITALS: Ht 157.5 cm; Wt 94.3 kg
[~2019-03-22] MED LIST changes: +IOHEXOL 240 MG/ML 50ML VIAL. IV ONE; +IOHEXOL 240 MG/ML 50ML VIAL. ONE; +LIDOCAINE WITH 8.4% SOD BICARB 3 ML DISP.SYRIN. IJ ONE; +LIDOCAINE WITH 8.4% SOD BICARB 3 ML DISP.SYRIN. ONE; +MIDAZOLAM HCL/PF 2 MG/2 ML VIAL. IV ONE; +MIDAZOLAM HCL/PF 2 MG/2 ML VIAL. ONE; +ROPI1TAB2 PO; +SIMV20TA18 PO; -SIMV20TA3 PO; +diphenhydrAMINE 50 MG/ML VIAL IVP ONE; +diphenhydrAMINE 50 MG/ML VIAL ONE; +fentaNYL PF VIAL 100 MCG/2 ML VIAL IV ONE; +fentaNYL PF VIAL 100 MCG/2 ML VIAL ONE
[2019-03-22 08:40] LABS: BASO # 0.1 x10^3/uL (0.0-0.2); BASO % 1 % (0-3); EOS # 0.5 x10^3/uL (0.0-0.7); EOS % 6 % (0-3); HEMATOCRIT 38.3 % (36.0-47.0); HEMOGLOBIN 12.1 g/dL (12.0-15.5); LYMPH # 1.4 x10^3/uL (1.0-4.8); LYMPH % 17 % (24-48); MEAN CORPUSCULAR HEMOGLOBIN 19 pg (25-35); MEAN CORPUSCULAR HGB CONC 32 g/dL (31-37); MEAN CORPUSCULAR VOLUME 61 fL (79-100); MONO # 0.7 x10^3/uL (0.0-1.1); MONO % 8 % (0-9); NEUT # 5.5 x10^3/uL (1.8-7.7); NEUT % 68 % (31-73); PLATELET COUNT 287 x10^3/uL (140-400); RED BLOOD COUNT 6.28 x10^6/uL (3.50-5.40); WHITE BLOOD COUNT 8.1 x10^3/uL (4.0-11.0)
[2019-03-22 08:52] LABS: PROTHROMBIN TIME PATIENT 12.1 SEC (11.7-14.0)
[2019-03-22 08:57] LABS: CALCIUM 9.1 mg/dL (8.5-10.1); CREATININE 0.8 mg/dL (0.6-1.0); GFR 69.4; POTASSIUM 3.8 mmol/L (3.5-5.1)
[2019-03-22 09:00] LABS: ALBUMIN 3.6 g/dL (3.4-5.0); ALBUMIN/GLOBULIN RATIO 0.9 (1.0-1.7); TOTAL BILIRUBIN 0.6 mg/dL (0.2-1.0); TOTAL PROTEIN 7.7 g/dL (6.4-8.2)
[2019-03-22 10:49] LABS: PLT ESTIMATE ADEQUATE (ADEQUATE)
[2019-03-22 10:54] LABS: ANISOCYTOSIS SLIGHT; HYPOCHROMIA MOD; MICROCYTOSIS MARKED; POLYCHROMASIA PRESENT; TARGET CELLS PRESENT
[2019-03-22 10:55] LABS: OVALOCYTES FEW
--- NOTE | 2019-03-22 14:42 | NUR ---
Nursing Note Nurse at bedside assisting pt to edge of bed for toileting. Pt complaining of dizziness. Instructed to sit at edge of bed for a few minutes while accompanied by RN. Pt stating she is okay to stand at this time. Upon standing pt became extremely dizzy and pale in the face another nurse called to bedside to assist pt back to bed. Prior to getting back to bed BP 60/46. Pt responsive to painful stimuli. Pt in supine in bed Fluid bolus initiated. Dr. Cooper notified. Current BP 139/73. Will continue to monitor.
--- NOTE | 2019-03-22 15:22 | NUR ---
Dr. Cooper at bedside assessing pt and has given orders to discharge pt home with .
--- NOTE | 2019-03-24 08:52 | RAD ---
Fluoroscopically guided kyphoplasty Indication:Compression fracture, L2, pathologic and refractory to conservative treatment measures Total fluoroscopy time: 10 minutes Dose area product: 45 Gycm2 Moderate sedation: The patient was appropriately monitored by a qualified independent observer throughout the course of the moderate sedation. Rwrz-sv-fono sedation time:43 minutes Consent: The risks and benefits of the procedure were discussed with the patient. Informed consent was obtained. The patient was brought to the fluoroscopy suite and placed in the prone position. A timeout procedure was performed. Preprocedural antibiotics were administered. Procedure: The overlying skin was prepped and draped in the usual sterile fashion. All elements of maximal sterile barrier technique including the use of a cap, mask, sterile gown, sterile gloves, large sterile sheet, appropriate hand hygiene, and 2% chlorhexidine for cutaneous antisepsis (or acceptable alternative antiseptic per current guidelines) were followed for this procedure. Using a left transpedicular approach, and direct fluoroscopic guidance, a trocar needle was advanced to the posterior third of the targeted vertebral body. Vertebral augmentation balloon was then coaxially introduced through the needle, into the more central vertebral body and was deployed. A curved cement delivery needle was advanced into the contralateral vertebral body. Contrast opacified polymethylmethacrylate was then very slowly and carefully introduced through the vertebral augmentation needle, using strict fluoroscopic control. Once adequate filling had been achieved the needles were removed and manual pressure was held. No significant extravasation or complication was identified. Sterile dressing was applied. Patient tolerated the procedure well, without apparent complication. Impression: Fluoroscopically guided kyphoplasty, L2
== END ==
LOC: INTRAD 08:20
PROVIDERS: ATTEND Internal Medicine Critical Care Medicine
DX: M48.56XA Collapsed vertebra, not elsewhere classified, lumbar region, initial encounter for fracture (principal); Z79.01 Long term (current) use of anticoagulants; Z79.899 Other long term (current) drug therapy
CPT/HCPCS: 22514; 36415; 80053; 82962; 85025; 85610; 99152; 99153; C1713; C1725; J0696; J1200; J2250; J3010; Q9966

== ENCOUNTER → 2019-03-23 | Outpatient (CLI) | payer MEDICARE, OTHER ==
[2019-03-22 12:35] VITALS: BP 119/68
[~2019-03-23] MED LIST changes: -IOHEXOL 240 MG/ML 50ML VIAL. IV ONE; -IOHEXOL 240 MG/ML 50ML VIAL. ONE; -LIDOCAINE WITH 8.4% SOD BICARB 3 ML DISP.SYRIN. IJ ONE; -LIDOCAINE WITH 8.4% SOD BICARB 3 ML DISP.SYRIN. ONE; -MIDAZOLAM HCL/PF 2 MG/2 ML VIAL. IV ONE; -MIDAZOLAM HCL/PF 2 MG/2 ML VIAL. ONE; -SIMV20TA18 PO; +SIMV20TA3 PO; -diphenhydrAMINE 50 MG/ML VIAL IVP ONE; -diphenhydrAMINE 50 MG/ML VIAL ONE; -fentaNYL PF VIAL 100 MCG/2 ML VIAL IV ONE; -fentaNYL PF VIAL 100 MCG/2 ML VIAL ONE
--- NOTE | 2019-03-23 16:56 | RAD ---
MR#: [id number] Date of Study: 03/23/2019 Ordering Physician: SRUTHI WHITTINGTON, Referring Physician: SRUTHI WHITTINGTON, Tech: Anival Colorado MBA, RDMS, RVT, RDCS, RTR APPROVED REPORT Patient Location : OUT-PATIENT Indications Greater Saphenous Veins (GSV) Significant venous relux noted in the LEFT GSV at the following levels : Superficial Femoral Junction , Proximal Thigh, Mid Thigh, Distal Thigh Findings The RGSV measures 6.4 mm and does not reflux. The LGSV measures 4.9 mm with localized reflux at the level of the SFJ for a maximumu of 3.4 seconda. Bilaterall lesser saphenous veins do not reflux. Critical Notification Critical Value: No <Conclusion> 1. Localized reflux at the level of the left SFJ not extending into the GSV. Signed by : Enoch Richard, Electronically Approved : 03/23/2019 16:55:48
--- NOTE | 2019-03-24 08:44 | RAD ---
MR#: [id number] Date of Study: 03/23/2019 Ordering Physician: SRUTHI WHITTINGTON, Referring Physician: SRUTHI WHITTINGTON, Tech: Anival Colorado MBA, RDMS, RVT, RDCS, RTR APPROVED REPORT Bilateral Lower Extremity Venous Study for DVT Patient Location: OUT-PATIENT Indications Lower Extremity Edema: Bilateral Vein Imaging (Right) CFV (R): Compressible SFJ (R): Compressible FEM (R): Compressible POP (R): Compressible DFV (R): Compressible PTV (R): Spontaneous GSV (R): Spontaneous Peroneals (R): Spontaneous Vein Imaging (Left) CFV (L): Compressible SFJ (L): Compressible FEM (L): Compressible POP (L): Compressible DFV (L): Compressible PTV (L): Spontaneous GSV (L): Spontaneous Peroneals (L): Spontaneous Doppler Evaluation (Right) CFV (R): Spontaneous POP (R):Spontaneous Doppler Evaluation (Left) CFV (L):Spontaneous POP (L):Spontaneous Findings The bilateral lower extremity deep veins were evaluated for thrombus with color Doppler, spectral and grayscale images. On the right the grayscale images of the common femoral, superficial femoral and popliteal veins do n ot demonstrate any evidence of thrombus and these veins appear to be compressible. The below-knee vei ns were not well visualized but grossly appear to be compressible. Spectral imaging and color Doppler do not reveal any evidence of obstruction to flow with normal respirophasic variation above the knee . Below the knee there is spontaneous flow noted. On the left, the grayscale images of the common femoral, superficial femoral and popliteal veins do n ot demonstrate any evidence of thrombus and these veins appear to be compressible. The below-knee vei ns again were not well visualized but grossly appear to be compressible. Spectral imaging and color D oppler do not reveal any evidence of obstruction to flow with normal respirophasic variation above th e knee. The below-knee veins demonstrate spontaneous flow. Critical Notification Critical Value: No <Conclusion> Technically difficult study No evidence of DVT of the BLE. Signed by : Enoch Richard, Electronically Approved : 03/24/2019 08:43:52
--- NOTE | 2019-03-24 09:15 | RAD ---
MR#: [id number] Date of Study: 03/23/2019 Ordering Physician: SRUTHI WHITTINGTON, Referring Physician: SRUTHI WHITTINGTON, Tech: Anival Colorado MBA, RDMS, RVT, RDCS, RTR APPROVED REPORT Patient Location: OUT-PATIENT Indications PAD VELOCITY AND DOPPLER WAVEFORM ANALYSIS RIGHT cm/secWaveformSeverity LEFT cm/secWaveform Severity dCFA 211.0BiphasicdCFA 215.0Triphasic Prof Fem Art. 72.0BiphasicProf Fem Art. 101.0Monophasic Fem Art Prox. 186.0BiphasicFem Art Prox. 172.0Triphasic Fem Art Mid. 101.0BiphasicFem Art Mid. 121.0Biphasic Fem Art Dist. 210.0BiphasicFem Art Dist. 85.0Biphasic Pop Art(Fossa) 86.0BiphasicPop Art(AK) 83.0Biphasic MACHINE BANDER AND CELLOPHANER Prox. 37.0BiphasicPTA Prox. 58.0Monophasic MACHINE BANDER AND CELLOPHANER Dist. 65.0BiphasicPTA Dist. 32.0Monophasic Per Art Mid. 75.0BiphasicPer Art Mid. 73.0Biphasic CASSIE Prox. 61.0BiphasicATA Prox. 95.0Biphasic DPA 31BiphasicDPA 79Biphasic Findings Grayscale images of the bilateral lower extremity arterial vessels reveals mild diffuse plaque. On the right side there are mostly biphasic waveforms with mildly increased velocities at the level o f the common femoral artery and distal superficial femoral artery suggestive of moderate disease. No focal high-grade obstruction noted with three-vessel runoff below the knee. On the left there are mostly biphasic waveforms above the knee with monophasic waveforms below the kn ee suggestive of moderate diffuse adventitial calcification of loss of arterial elasticity. Again no critical high-grade stenosis is identified. Critical Notification Critical Value: No <Conclusion> 1. Moderate bilateral lower extremity arterial disease without any critical obstruction noted with th ree-vessel runoff below the knee. Signed by : Enoch Katrapati, Electronically Approved : 03/24/2019 09:15:24
--- NOTE | 2019-03-24 09:18 | CARD ---
MR#: [id number] Date of Study: 03/23/2019 Ordering Physician: SRUTHI WHITTINGTON, Referring Physician: SRUTHI WHITTINGTON, Shirley: Kiarra Trivedi APPROVED REPORT EXAM: Two-dimensional and M-mode echocardiogram with Doppler and color Doppler. Other Information Quality : FairHR: 98bpm Technically limited study due to body habitus. INDICATION Murmur 2D DIMENSIONS RVDd2.7 (2.9-3.5cm)Left Atrium(2D)3.1 (1.6-4.0cm) IVSd1.0 (0.7-1.1cm)Aortic Root(2D)1.9 (2.0-3.7cm) LVDd4.6 (3.9-5.9cm)LVOT Diameter1.8 (1.8-2.4cm) PWd1.0 (0.7-1.1cm)LVDs2.7 (2.5-4.0cm) FS (%) 40.1 %SV68.1 ml LVEF(%)70.9 (>50%) Aortic Valve AoV Peak Chris.101.5cm/sAoV VTI20.4cm AO Peak GR.4.1mmHgLVOT Peak Chris.102.0cm/s AO Mean GR.2mmHgAVA (VMAX)2.53cm2 Pulmonary Valve PV Peak Jzawqumj825.8cm/s Tricuspid Valve TR P. Eokvzxbt908dn/sRAP [id number] TR Peak Gr.58ksYzZPEU25wmYy Pulmonary Vein S1 Zpuxklrk51.5cm/sD2 Kxxsfslq11.8cm/s LEFT VENTRICLE The left ventricle is normal size. There is borderline concentric left ventricular hypertrophy. The l eft ventricular systolic function is normal and the ejection fraction is within normal range. The Eje ction Fraction is >55%. There is normal LV segmental wall motion. Tissue Doppler imaging reveals mode rate left ventricular diastolic dysfunction. RIGHT VENTRICLE The right ventricle is mildly dilated. There is normal right ventricular wall thickness. The right ve ntricular systolic function is normal. ATRIA The left atrium size is normal. The right atrium size is normal. The interatrial septum is intact wit h no evidence for an atrial septal defect or patent foramen ovale as noted on 2-D or Doppler imaging. AORTIC VALVE The aortic valve is not well visualized. Doppler and Color Flow revealed trace aortic regurgitation. There is no significant aortic valvular stenosis. MITRAL VALVE The mitral valve is normal in structure and function. There is no evidence of mitral valve prolapse. There is no mitral valve stenosis. Doppler and Color Flow revealed no mitral valve regurgitation note d. TRICUSPID VALVE The tricuspid valve is not well visualized. Doppler and Color Flow revealed trace tricuspid regurgita tion with an estimated PAP of 42 mmHg. There is no tricuspid valve stenosis. PULMONIC VALVE The pulmonic valve is not well visualized. Doppler and Color Flow revealed no pulmonic valvular regur gitation. GREAT VESSELS The aortic root is normal in size. The IVC is normal in size and collapses >50% with inspiration. PERICARDIAL EFFUSION There is no evidence of significant pericardial effusion. Critical Notification Critical Value: No <Conclusion> The left ventricular systolic function is normal and the ejection fraction is within normal range. Th e Ejection Fraction is >55%. Doppler and Color Flow revealed trace tricuspid regurgitation with an estimated PAP of 42 mmHg. Signed by : Enoch Richard, Electronically Approved : 03/24/2019 09:18:15
== END | disposition home or self-care (01) ==
LOC: ECHO 13:21
PROVIDERS: ATTEND Internal Medicine Cardiovascular Disease
DX: I73.89 Other specified peripheral vascular diseases (principal); I51.7 Cardiomegaly
CPT/HCPCS: 93306; 93925; 93970

== ENCOUNTER → 2020-06-07 | Outpatient (CLI) | payer MEDICARE, OTHER ==
[2019-03-22 12:35] VITALS: BP 119/68
[~2020-06-07] MED LIST changes: -ROPI1TAB2 PO; +ROPI1TAB4 PO; +SIMV20TA18 PO; -SIMV20TA3 PO
--- NOTE | 2020-06-08 04:48 | KCIC ---
Chest radiograph 06/07/2020 3:25 PM INDICATION: COPD, CHF COMPARISON: 08/27/2018 TECHNIQUE: Frontal and lateral views of the chest are provided. FINDINGS: The cardiomediastinal silhouette is borderline enlarged. Mild pulmonary vascular congestion. Trace le ft pleural effusion. Bandlike densities at the lung bases may represent subsegmental atelectasis vers us infiltrates. Flattening of the diaphragms is associated with air trapping as may be seen with COPD . No pneumothorax. No significant osseous abnormality is identified. IMPRESSION: 1. Mild congestive heart failure. 2. COPD with bibasilar subsegmental atelectasis versus infiltrates. Electronically signed by: Brianna Douglas MD (06/08/2020 4:45 AM) [facility]
== END ==
LOC: KCIC 15:10
PROVIDERS: ATTEND Internal Medicine Critical Care Medicine
DX: I50.9 Heart failure, unspecified (principal); J44.9 Chronic obstructive pulmonary disease, unspecified; J98.11 Atelectasis
CPT/HCPCS: 71046

== ENCOUNTER → 2021-02-27 | Outpatient (CLI) | payer MEDICARE, OTHER ==
[2019-03-22 12:35] VITALS: BP 119/68
[~2021-02-27] MED LIST changes: -VALS1TAB22 PO; +VALS1TAB23 PO
--- NOTE | 2021-02-28 08:32 | KCIC ---
AP and Lateral Views of the Chest 02/27/2021 2:54 PM Indication: Reason: Cough, COPD, past smoker, quit 15 yrs. ago. / Spl. Instructions: / History: Comparison: Chest radiograph June 07, 2020 Findings: There is no pneumothorax or pleural effusion. No new focal infiltrate is identified. Inters titial coarsening noted. Heart size is normal. Linear opacities in the lung bases and obscuration of the costophrenic angle po steriorly on lateral view are similar to comparison study, likely chronic scarring or atelectasis. No acute osseous changes identified in the interim. IMPRESSION: Changes of chronic lung disease consistent with history of COPD without evidence of acute cardiopulmonary process or acute change from comparison study Electronically signed by: Dwight Cooper MD (02/28/2021 8:30 AM) [id number]
== END ==
LOC: KCIC 14:50
PROVIDERS: ATTEND Internal Medicine Critical Care Medicine
DX: J98.4 Other disorders of lung (principal)
CPT/HCPCS: 71046

== ENCOUNTER → 2021-09-20 | Outpatient (CLI) | payer MEDICARE, OTHER ==
[2019-03-22 12:35] VITALS: BP 119/68
[~2021-09-20] MED LIST changes: +CYCL10TA19 PO; -CYCL10TA2 PO
--- NOTE | 2021-09-20 16:28 | KCIC ---
MR LUMBAR SPINE [id number] Date: 09/20/2021 1:20 PM Indication: LOWER BACK PAIN/HISTORY OF SPINAL FX. Previous compression fx with intervention. LBP, se keo. Painful to walk or lay down in recent weeks. Comparison: 03/08/2019. Technique: Multi-planar multi-weighted magnetic resonance imaging of the lumbar spine was performed w ithout intravenous contrast using the standard lumbar spine protocol. FINDINGS: No acute fracture. Chronic compression deformities at T10, T11, L1, L2, and L3 with postsurgical merida ges of vertebral augmentation at L2. The lumbar spine is normally aligned. Mild to moderate multilevel degenerative disc desiccation and d isc height loss. No marrow replacing process to suggest malignancy. The conus terminates at a normal level. No abnormal signal is seen within the visualized distal spina l cord. No clumping of intrathecal nerve roots. Bilateral renal parapelvic cysts. T11-T12: Disc bulge. Mild facet arthropathy. No spinal canal stenosis or neural foraminal narrowing. T12-L1: Disc bulge. Mild facet arthropathy. No significant spinal stenosis or neural foraminal narrow ing. L1-L2: Disc bulge. Mild facet arthropathy. No significant spinal stenosis. Mild to moderate bilateral foraminal narrowing. L2-L3: Disc bulge. Moderate facet arthropathy. No significant spinal stenosis. Mild to moderate bilat eral neural foraminal narrowing. L3-L4: Disc bulge. Moderate facet arthropathy. No significant spinal stenosis or neural foraminal ubaldo rowing. L4-L5: Disc bulge. Moderate to severe facet arthropathy. No significant spinal stenosis. Mild left ne ural foraminal narrowing. L5-S1: Disc bulge. Moderate facet arthropathy. No significant spinal stenosis or neural foraminal ubaldo rowing. IMPRESSION: 1. No acute fracture. Multiple chronic compression deformities as above. 2. Aixi-li-ujotcmll lumbar spondylosis. Electronically signed by: Tigre Jay MD (09/20/2021 4:26 PM) [id number]
== END ==
LOC: KCIC MRI 12:54
PROVIDERS: ATTEND Family Medicine
DX: M51.27 Other intervertebral disc displacement, lumbosacral region (principal); M47.817 Spondylosis without myelopathy or radiculopathy, lumbosacral region; M48.061 Spinal stenosis, lumbar region without neurogenic claudication; Z87.81 Personal history of (healed) traumatic fracture
CPT/HCPCS: 72148